=== PATIENT | male | born 1990 | race Caucasian/White ===

== ENCOUNTER 2017-11-03 18:39 | Emergency (ER) | payer OTHER ==
[~2017-11-03] VITALS: Ht 172.7 cm; Wt 59.0 kg
[2017-11-03] MEDS ORDERED: NKM (18:59)
[2017-11-03 19:55] VITALS: BP 104/72
--- NOTE | 2017-11-03 20:42 | Emergency Room Report ---
History of Present Illness General Chief Complaint: Upper Extremity Injury Source: Patient Present Illness HPI 27-year-old male presents to the emergency department complaining of pain, tenderness, swelling, bruising to the posterior right elbow status post trauma when he accidentally hit his elbow against a fire alarm/fire equipment while at work. Patient reports pain with movement of his elbow. Denies numbness tingling or loss of sensation or gross motor movements of the extremity. He denies open wounds or bleeding. Allergies: Coded Allergies: No Known Allergies (Unverified , 11/03/17) Patient History Past Medical History: see triage record Past Surgical History: none Pertinent Family History: none Immunizations: UTD Reviewed Nursing Documentation: PMH: Agreed; PSxH: Agreed Nursing Documentation-PMH Past Medical History: No Stated History Review of Systems All Other Systems: negative except mentioned in HPI Physical Exam Vital Signs Date Time Temp Pulse Resp B/P (MAP) Pulse Ox O2 Delivery O2 Flow Rate FiO2 11/03/17 18:56 98.3 72 16 104/72 98 Room Air 98.2 Sp02 EP Interpretation: reviewed, normal General Appearance: no apparent distress, alert, GCS 15, non-toxic Head: normocephalic, atraumatic Eyes: bilateral eye normal inspection, bilateral eye PERRL ENT: hearing grossly normal, normal voice Neck: full range of motion Respiratory: lungs clear, normal breath sounds, speaking full sentences Cardiovascular #1: regular rate, rhythm, normal capillary refill Cardiovascular #2: 2+ radial (R), 2+ radial (L) Musculoskeletal: back normal, gait/station normal, normal range of motion, swelling - right posterior elbow, somewhat circumscribed, other - bruising to the posterior right elbow, tender - posterior right elbow Neurologic: alert, oriented x3, responsive, motor strength/tone normal, sensory intact, normal gait, speech normal, grossly normal Psychiatric: judgement/insight normal Skin: normal color, no rash, warm/dry, well hydrated, other - bruise to posterior right elbow Medical Decision Making PA Attestation Dr. Yeboah is my supervising Physician whom patient management has been discussed with. Diagnostic Impression: Primary Impression: Olecranon bursitis of right elbow ER Course 27-year-old male presents to the emergency department complaining of pain, tenderness, swelling, bruising to the posterior right elbow status post trauma when he accidentally hit his elbow against a fire alarm/fire equipment while at work. Patient reports pain with movement of his elbow. Denies numbness tingling or loss of sensation or gross motor movements of the extremity. He denies open wounds or bleeding. Ddx considered but are not limited to Fracture, dislocation, contusion, Sprain/ Strain/Spasm, bursitis, septic joint. Vital signs: are WNL, pt. is afebrile H&PE are most consistent with musculoskeletal injury will perform imaging to r/ o fractures/dislocations. ORDERS: - X-ray Right elbow 3 views - negative for fx, Dislocation, or significant soft tissue injury, per preliminary read in ED, and signed by AIDAN Urbano , my supervising physician has reviewed, and agrees with my interpretation. 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 Pt. remains neurovascularly intact. DISCHARGE: At this time pt. is stable for d/c to home. Will provide printed patient care instructions, and any necessary prescriptions. Care plan and follow up instructions have been discussed with the patient prior to discharge. Last Vital Signs Date Time Temp Pulse Resp B/P (MAP) Pulse Ox O2 Delivery O2 Flow Rate FiO2 11/03/17 19:55 98.2 16 104/72 98 Room Air 98.2 11/03/17 18:56 72 Disposition: HOME, SELF-CARE Condition: Stable Scripts Ibuprofen* (MOTRIN*) 600 Mg Tablet 600 MG ORAL THREE TIMES A DAY, #30 TAB 0 Refills Prov: Yadira Urbano 11/03/17 Departure Forms: Return to Work Return to Work Date: Nov 06, 2017 Work Restrictions: No Heavy Lifting Other Restrictions: light duty x 1 week. Return to Full Activity: Nov 13, 2017 Patient Instructions: Olecranon Bursitis With Rehab-SportsMed Additional Instructions: Take medications as directed. Follow up with a Primary Care Provider in 3-5 days, even if your symptoms have resolved. --Please review list of primary care clinics, if you do not already have a primary care provider Return sooner to ED if new symptoms occur, or current symptoms become worse. - Please note that this Emergency Department Report was dictated using [employer] technology software, occasionally this can lead to erroneous entry secondary to interpretation by the dictation equipment. Yadira Urbano Nov 03, 2017 20:42
[2017-11-03] MEDS ORDERED: IBUPROFEN600 MG ORAL (20:44)
[2017-11-03 20:51] VITALS: BP 104/72
--- NOTE | 2017-11-04 11:08 | Diagnostic Imaging Report ---
Indication: Elbow pain Findings: 3 views of the left elbow were obtained. No acute fractures, malalignment, erosions or periostitis are identified. Soft tissues are unremarkable. Impression: No acute injury
== END 2017-11-03 21:54 | disposition home or self-care (01) ==
LOC: EMR 19:30
DX: M70.21 Olecranon bursitis, right elbow (principal); W22.8XXA Striking against or struck by other objects, initial encounter; Y92.89 Other specified places as the place of occurrence of the external cause; Y99.0 Civilian activity done for income or pay
CPT/HCPCS: 99283